=== PATIENT | male | born 1980 | race Caucasian/White ===

== ENCOUNTER 2017-01-14 18:01 | Inpatient (IN) | payer BC, OTHER ==
[~2017-01-14] VITALS: Ht 172.7 cm; Wt 63.5 kg
[2017-01-15] MEDS ORDERED: MAGNESIUM HYDROXIDE 30 ML LIQUID UDC PO PRN (11:30)
[2017-01-15] MEDS ORDERED: LOPERAMIDE HCL 2 MG CAPSULE PO PRN ×2 (11:30)
[2017-01-15] MEDS ORDERED: IBUPROFEN 600 MG TABLET PO PRN (11:30)
[2017-01-15] MEDS ORDERED: ONDANSETRON ODT 4 MG TAB.RAPDIS SL PRN (11:30)
[2017-01-15] MEDS ORDERED: MAG HYDROX/AL HYDROX/SIMETH 30 ML LIQUID UDC PO PRN (11:30)
[2017-01-15] MEDS ORDERED: BUPRENORPHINE HCL 2 MG TAB.SUBL SL PRN (11:30)
[2017-01-15] MEDS ORDERED: TRAZODONE 50 MG TABLET PO PRN ×2 (11:30→22:15)
[2017-01-15] MEDS ORDERED: DICYCLOMINE HCL 20 MG TABLET PO PRN (11:30)
[2017-01-15] MEDS ORDERED: PROMETHAZINE HCL 25 MG/1 ML VIAL IM PRN (11:30)
[2017-01-15] MEDS ORDERED: ACETAMINOPHEN 325 MG TABLET PO PRN (11:30)
[2017-01-15] MEDS ORDERED: MIRALAX 17 GM POWD.PACK PO PRN (11:30)
[2017-01-15] MEDS ORDERED: KETOROLAC TROMETHAMINE 30 MG INJ IM PRN (11:30)
[2017-01-15] MEDS: METHOCARBAMOL 750 MG TABLET PO PRN ×2 (11:59→21:58)
[2017-01-15 12:00] VITALS: BP 123/67
[2017-01-15] MEDS ORDERED: LORAZEPAM 1 MG TABLET PO ONE ×2 (12:00→14:45)
[2017-01-15] MEDS ORDERED: CLONIDINE HCL 0.1 MG TABLET PO ONE (12:00)
--- NOTE | 2017-01-15 12:00 | NUR ---
ADMISSION Pt 36 y/o male admitted for heroin and methamphetamine dependence. NKA. Full code status. Pt states he is homeless. cycle liaison made aware. Pt alert and oriented to name, place, and time. Perrla. Skin warm and dry to touch. Pt states he experience chills. Pt also states he feels anxious. Pt observed could not sit still during assessment. Pt easily irritable. Respirations even and unlabored. Bilateral hand tremors noted. Pt also states has stomach cramps. Pt observed with rushed, pressured speech. Pt was seen by Dr. Wright and placed on a 5 day subutex taper. Initial cows=16. Pt denies any seizure history. VS wnl. Pt oriented to room and the unit. Bed on lowest position with side rails x2 up for safety. Call light within reach. No distress noted at this time. substance history: -heroin IV 2gm daily x1.5 months, last used 01/14/17 0.5gm ( used for 20years) - Methamphetamine IV 2 gm daily x1.5gm , last used 01/14/17 0.5gm ( used for 20 years) -marijuana smoke. just dose occassionally per pt. Last used on 01/14/17 0.3gm ( used for 24 years) tx history: -[facility] 12/2016 -[facility] 11/2016 - [facility] 08/21/2016 Addendum: 01/16/17 at 1031 by ANNE DELACRUZ RN Pt states has no PCP. Addendum: 01/16/17 at 1032 by ANNE DELACRUZ RN Medical hx: Crohn's , hx of pancreatitis.
[2017-01-15 12:07] LABS: BASOPHILS # (AUTO) 0.1 K/uL (0.0-0.2); BASOPHILS % (AUTO) 0.5 % (0.0-2.0); EOSINOPHILS # (AUTO) 0.2 K/uL (0.0-0.7); EOSINOPHILS % (AUTO) 1.5 % (0.0-7.0); HEMATOCRIT 46.2 % (40.0-50.0); HEMOGLOBIN 15.4 g/dL (14.0-18.0); MEAN CORPUSCULAR HGB CONC 33 g/dL (32.0-37.0); MEAN CORPUSCULAR VOLUME 86.9 fL (82.0-92.0); MONOCYTES # (AUTO) 0.5 K/uL (0.1-1.30); MONOCYTES % (AUTO) 4.2 % (0.0-11.0); NEUTROPHILS # (AUTO) 8.1 K/uL (1.8-8.9); NEUTROPHILS % (AUTO) 75.8 % (38.5-71.5); PLATELET COUNT (AUTO) 386 K/uL (150-450); RED BLOOD CELL COUNT(AUTO) 5.32 MIL/uL (4.70-6.10); RED CELL DISTRIBUTION WIDTH 12.5 % (11.5-14.5); WHITE BLOOD COUNT (AUTO) 10.9 K/uL (4.0-11.2)
[2017-01-15 12:08] LABS: ALANINE AMINOTRANSFERASE 20 U/L (16-63); ALBUMIN 3.8 g/dL (3.4-5.0); ALKALINE PHOSPHATASE 106 U/L (50-136); ASPARTATE AMINOTRANSFERASE 16 U/L (15-37); BILIRUBIN,TOTAL 0.3 mg/dL (0.2-1.0); CALCIUM 9.2 mg/dL (8.5-10.1); CARBON DIOXIDE 30 mmol/L (21-32); CHLORIDE 103 mmol/L (98-107); GFR 86 mL/min (>60); GLUCOSE 150 mg/dL (74-106); MAGNESIUM 2.2 mg/dL (1.8-2.4); POTASSIUM 4.5 mmol/L (3.5-5.1); SODIUM SERUM 143 mmol/L (136-145); UREA NITROGEN, BLOOD 12 mg/dL (7-18)
[2017-01-15] MEDS: BUPRENORPHINE HCL 2 MG TAB.SUBL SL SCH ×3 (12:10→21:59)
[2017-01-15 12:19] LABS: THYROID STIMULATING HORMONE 1.379 mIU/mL (0.358-3.740)
[2017-01-15] MEDS ORDERED: GABA600T2 PO (12:55)
[2017-01-15] MEDS ORDERED: LAMO150T PO (12:55)
[2017-01-15] MEDS ORDERED: TRAZ-147 PO (12:55)
[2017-01-15] MEDS ORDERED: ARIP5TAB4 PO (12:55)
[2017-01-15 13:00] LABS: HIV-1 p24 ANTIGEN NON REACTIVE (NONREACTIVE); HIV-1/2 ANTIBODY NON REACTIVE (NONREACTIVE)
[2017-01-15] MEDS: GABAPENTIN 300 MG CAPSULE PO SCH ×2 (14:47→21:58)
--- NOTE | 2017-01-15 14:50 | NUR ---
PRN Pt with ciwa=8. Pt appears restless and easily irritable. Pt was seen by Dr. Wright with new order for ativan 2mg po x1 dose noted and carried out.
[2017-01-15 15:43] LABS: *AMPHETAMINE, URINE POSITIVE (NEGATIVE); *BARBITURATE, URINE POSITIVE (NEGATIVE); *CANNABINOID, URINE POSITIVE (NEGATIVE); *COCCAINE, URINE NEGATIVE (NEGATIVE); *OPIATE, URINE POSITIVE (NEGATIVE); *PHENCYCLIDINE SCREEN,URINE NEGATIVE (NEGATIVE)
[2017-01-15 15:45] LABS: ETHANOL < 3 MG/DL (0-0)
[2017-01-15 16:00] VITALS: BP 107/63
[2017-01-15] MEDS: CLONIDINE HCL 0.1 MG TABLET PO PRN (18:28)
[2017-01-15] MEDS: HYDROXYZINE PAMOATE 25 MG CAPSULE PO PRN (18:28)
--- NOTE | 2017-01-15 19:36 | NUR ---
END OF SHIFT Pt 36 y/o male admitted for heroin and methamphetamine dependence. Pt alert and oriented to name, place, and time. Perrla. Skin warm and dry to touch. Respirations even and unlabored. Pt states he experiences chills at times. Bilateral hand tremors. Pt observed clearing nostrils at times. Pt observed mostly in room today. Pt was seen by Dr. Wright and started on a 5 day subutex taper. Pt medication compliant and tolerated well. Bed on lowest position with side rails x2 up for safety. Call light within reach. No distress noted at this time.
[2017-01-15 20:00] VITALS: BP 121/87
--- NOTE | 2017-01-15 20:00 | NUR ---
START OF SHIFT NOTE: REPORT RECEIVED FROM DAY SHIFT NURSE. PT IS A 36YO MALE ADMITTED TODAY FOR OPIATE DEPENDENCE/WITHDRAWAL. PT REPORTS USING IV HEROIN 2GM/DAY FOR 6 WEEKS; PT ALSO REPORTS USING IV METHAMPHETAMINE AND MARIJUANA. LAST DAY SHIFT COWS=12. PT STARTED A 5-DAY SUBUTEX TAPER TODAY AT 12:00. PT REPORTS MED HX OF CROHN'S DISEASE AND PANCREATITIS. PT IS A FULL CODE, ON A REGULAR DIET, AND REPORTS NKA. PT IS CURRENTLY IN BED WITH EYES CLOSED, RESPIRATIONS ARE EVEN AND UNLABORED. NO S/S OF ACUTE DISTRESS NOTED. ALL SAFETY PRECAUTIONS ARE IN PLACE. WILL CONTINUE TO MONITOR.
--- NOTE | 2017-01-15 21:00 | NUR ---
UDS RESULTS: UDS RESULTED POSITIVE FOR BARBITURATES. PT REPORTS TAKING PHENOBARBITAL "ABOUT A WEEK AGO" AT ANOTHER DETOX FACILITY. PT UNSURE OF DOSE AND/OR FREQUENCY.
--- NOTE | 2017-01-15 22:01 | NUR ---
PRN ROBAXIN: PT C/O MYALGIA IN LOWER BACK. ADMINISTERED PRN ROBAXIN ORDERED. WILL CONTINUE TO MONITOR.
--- NOTE | 2017-01-15 22:15 | NUR ---
MD COMMUNICATION: PT REPORTS HOME MED TRAZODONE ORDER IS FOR 200MG QHS. DR TIWARI CONTACTED AND NEW ORDER RECEIVED FOR TRAZODONE 200MG PO QHS PRN.
[2017-01-15] MEDS ORDERED: TRAZODONE 100 MG TABLET ONE (22:27)
--- NOTE | 2017-01-15 22:28 | NUR ---
PRN TRAZODONE: PT C/O INABILITY TO SLEEP. ADMINISTERED PRN TRAZODONE ORDERED. WILL CONTINUE TO MONITOR.
--- NOTE | 2017-01-15 23:00 | NUR ---
REASSESSMENT: PT REPORTS THAT ROBAXIN WAS EFFECTIVE IN REDUCING MUSCLE CRAMPS IN LOWER BACK. PRN ROBAXIN EFFECTIVE. WILL CONTINUE TO MONITOR.
--- NOTE | 2017-01-15 23:30 | NUR ---
REASSESSMENT: PT IS IN BED WITH EYES CLOSED. RESPIRATIONS ARE EVEN AND UNLABORED. NO S/S OF ACUTE DISTRESS NOTED. PRN TRAZODONE 200MG EFFECTIVE. WILL CONTINUE TO MONITOR.
--- NOTE | 2017-01-16 | NUR ---
Vitals and COWS Refused: Pt refuses ordered 00:00 vitals and COWS assessments. Pt educated on risks and benefits. All safety precautions are in place. Will continue to monitor. Addendum: 01/16/17 at 0319 by ERICH PETE RN Amended: Links added.
--- NOTE | 2017-01-16 04:00 | NUR ---
VITALS & COWS REFUSED: PT REFUSES ORDERED 04:00 VITALS AND COWS ASSESSMENTS. PT EDUCATED ON RISKS AND BENEFITS BUT CONTINUED TO REFUSE. ALL SAFETY PRECAUTIONS ARE IN PLACE. WILL CONTINUE TO MONITOR. Addendum: 01/16/17 at 0715 by ERICH PETE RN Amended: Links added.
--- NOTE | 2017-01-16 07:28 | NUR ---
END OF SHIFT NOTE: PT IS A 36YO MALE ADMITTED TO [facility] ON 01/15/17 FOR OPIATE DEPENDENCE AND WITHDRAWAL. PT REPORTS USING IV HEROIN 2GM/DAY FOR 6 WEEKS; PT ALSO REPORTS USING IV METHAMPHETAMINE AND MARIJUANA. LAST COWS=10 AT 20:00. SCHEDULED SUBUTEX TAPER MANAGED S/S OF WITHDRAWAL, IN ADDITION TO PRN ROBAXIN FOR MYALGIA. NEW ORDER FOR TRAZODONE 200MG PO QHS PRN WAS RECEIVED AND ADMINISTERED THIS SHIFT FOR INSOMNIA. PT IS TO START DAY 2 OF A 5-DAY SUBUTEX TAPER. PT REPORTS MED HX OF CROHNS DISEASE AND PANCREATITIS. PT IS A FULL CODE, ON A REGULAR DIET, AND REPORTS NKA. TOTAL FLUID INTAKE THIS SHIFT: 1536 ML ORAL; OUTPUT: URINE X2, BM X2. VSS THIS SHIFT. PT IS CURRENTLY IN BED AND SLEPT FOR 9 HOURS THIS SHIFT. ALL SAFETY PRECAUTIONS ARE IN PLACE. ALL NEEDS ATTENDED AND MET. WILL ENDORSE TO DAY SHIFT NURSE.
[2017-01-16 08:00] VITALS: BP 116/62
--- NOTE | 2017-01-16 08:00 | NUR ---
START OF SHIFT Pt 36 y/o male admitted for heorin and methamphetamine dependence. Pt received in room awake watching television. Pt alert and oriented to name, place, and time. Perrla. Skin warm and slightly moist to touch. Respirations even and unlabored. Bilateral hand tremors noted. It was reported that pt slept for 9 hours last night. Bed on lowest position with side rails x2 up for safety. Call light within reach. No distress noted at this time.
--- NOTE | 2017-01-16 08:59 | NUR ---
PRN Pt with c/o body aches generalized 03/30. Robaxin po prn per MD order given and tolerated well.
[2017-01-16] MEDS ORDERED: TUBERCULIN,PURIF.PROT.DERIV. 5 TU/0.1 ML TEST ID ONE (09:00)
[2017-01-16] MEDS: BUPRENORPHINE HCL 2 MG TAB.SUBL SL SCH ×3 (09:58→22:01)
[2017-01-16] MEDS: HYDROXYZINE PAMOATE 25 MG CAPSULE PO PRN (09:58)
[2017-01-16] MEDS: GABAPENTIN 300 MG CAPSULE PO SCH ×3 (09:58→22:00)
--- NOTE | 2017-01-16 09:58 | NUR ---
PRN Pt stated feels anxious and restless. Vistaril po prn per MD order and catapres po prn per MD order given and tolerated well.
--- NOTE | 2017-01-16 09:58 | NUR ---
PRN Pt stated had diarrhea episode this morning. Immodium 4mg po prn per MD order given and tolerated well.
[2017-01-16] MEDS: CLONIDINE HCL 0.1 MG TABLET PO PRN (09:59)
[2017-01-16] MEDS: METHOCARBAMOL 750 MG TABLET PO PRN (09:59)
--- NOTE | 2017-01-16 09:59 | NUR ---
OANH BARBER Pt observed in room with eyes closed resting, but easily arousable to name. No distress noted at this time.
[2017-01-16] MEDS: MULTIVITAMINS,THERAPEUTIC TABLET PO SCH (10:08)
--- NOTE | 2017-01-16 10:58 | NUR ---
OANH BARBER Pt observed in room on bed with eyes closed resting, but easily arousable to name. No distress noted at this time.
[2017-01-16 12:00] VITALS: BP 96/41
[2017-01-16 12:30] VITALS: BP 108/60
[2017-01-16] MEDS ORDERED: LORAZEPAM 1 MG TABLET PO ONE (12:30)
[2017-01-16 15:09] LABS: HCV AB <0.1 s/co ratio (0.0-0.9); HEPATITIS B CORE AB, IgM Negative (Negative); HEPATITIS B SURFACE AG Negative (Negative)
[2017-01-16] MEDS: CLONIDINE HCL 0.1 MG TABLET PO SCH ×2 (15:26→22:00)
[2017-01-16 16:00] VITALS: BP 104/65
--- NOTE | 2017-01-16 18:45 | NUR ---
END OF SHIFT Pt 36 y/o male admitted for heroin and methamphetamine dependence. Pt alert and oriented to name, place, and time. Perrla. Skin warm and dry to touch. Respirations even and unlabored. Pt states he experiences chills at times throughout the day. Bilateral hand tremors. Pt observed mostly in room today. Pt did not attend group activity today. Pt was seen by Dr. Duncan today. Pt medication compliant and tolerated well. Bed on lowest position with side rails x2 up for safety. Call light within reach. No distress noted at this time.
--- NOTE | 2017-01-16 19:45 | NUR ---
Start of Shift Note: Report received from day shift nurse. Pt is a 36yo male admitted on 01/15/17 for opiate and methamphetamine dependence/withdrawal. Pt reports using 2gm IV heroin and methamphetamine daily for 6 weeks. Pt is on day 2 of a 5-day Subutex taper. Last day shift COWS=5. Pt is on a regular diet, reports NKDA/NKFA, and is a full code. Pt reports hx of Crohn's and pancreatitis. VSS during day shift, with PRN administration of Imodium, Vistaril, clonidine, Robaxin, and Ativan ONCE to manage s/s of withdrawal. Day shift nurse reports client agitated, anxious. Pt is currently with client resource specialist making phone call. Will continue to monitor.
[2017-01-16 20:00] VITALS: BP 115/69
[2017-01-16] MEDS: LAMOTRIGINE 100 MG TABLET PO SCH (21:59)
[2017-01-16] MEDS: ARIPIPRAZOLE 5 MG TABLET PO SCH (22:00)
[2017-01-16] MEDS: TRAZODONE 100 MG TABLET PO PRN (22:00)
--- NOTE | 2017-01-16 22:04 | NUR ---
PRN TRAZODONE: PT C/O INABILITY TO SLEEP. ADMINISTERED PRN TRAZODONE 200MG ORDERED. WILL CONTINUE TO MONITOR.
--- NOTE | 2017-01-16 23:00 | NUR ---
Reassessment: Upon reassessment, pt noted to be in bed with eyes closed. Respirations are even and unlabored. No s/s of acute distress noted. PRN Trazodone effective. Will continue to monitor.
--- NOTE | 2017-01-17 | NUR ---
VITALS AND COWS REFUSED: PT REFUSES 00:00 VITALS AND COWS ASSESSMENTS FOR SLEEP. PT EDUCATED ON RISKS AND BENEFITS. ALL SAFETY PRECAUTIONS ARE IN PLACE. WILL CONTINUE TO MONITOR. Addendum: 01/17/17 at 0503 by ERICH PETE RN Amended: Links added.
--- NOTE | 2017-01-17 04:00 | NUR ---
VITALS/COWS REFUSED: PT REFUSES 04:00 VITALS AND COWS ASSESSMENTS. PT EDUCATED ON RISKS AND BENEFITS. ALL SAFETY PRECAUTIONS ARE IN PLACE. WILL CONTINUE TO MONITOR. Addendum: 01/17/17 at 0503 by ERICH PETE RN Amended: Links added.
--- NOTE | 2017-01-17 07:45 | NUR ---
START OF SHIFT Pt is a 36 r old male, AA&Ox4. Pt was admitted on 01/15/17 for Opiate Dependence and is on 5 day Subutex taper as ordered. Medication veronica well. Pt is full code, Regular diet and NKA. Pt reports of PMH of Crohn disease, and Pancreatitis. Pt is observed with agitation and pacing back and forth in the hallway due to wanting to go for smoke break. Skin is intact, warm and dry to touch. No tremors seen or felt. Pt denies any n/v. encouraged increase fluid intake. Safety precautions observed. Call light is within reach. Will continue to monitor.
--- NOTE | 2017-01-17 07:46 | NUR ---
End of Shift Note: Pt is a 36yo male admitted to [facility] on 01/15/17 for medically-supervised withdrawal from opiates and methamphetamine. Pt reports using 2gm IV heroin and methamphetamine daily for 6 weeks. Pt is to start day 3 of a 5-day Subutex taper. Subutex taper effectively managed s/s of withdrawal. Last COWS=8 at 20:00. Pt is on a regular diet, reports NKDA/NKFA, and is a full code. Pt reports hx of Crohn's and pancreatitis. VSS during day shift, with PRN administration of Trazodone for insomnia. Total fluid intake this shift: 1091 ml; output: urine x1 and BM x0. Pt currently in bed and slept 8 hours this shift. Pt endorsed to day shift nurse.
[2017-01-17 08:00] VITALS: BP 112/62
[2017-01-17] MEDS: GABAPENTIN 300 MG CAPSULE PO SCH ×3 (08:52→22:08)
[2017-01-17] MEDS: CLONIDINE HCL 0.1 MG TABLET PO SCH ×3 (08:52→22:07)
[2017-01-17] MEDS: MULTIVITAMINS,THERAPEUTIC TABLET PO SCH (08:52)
[2017-01-17] MEDS ORDERED: BUPRENORPHINE HCL 2 MG TAB.SUBL SL SCH (09:00)
[2017-01-17 12:00] VITALS: BP 115/60
[2017-01-17] MEDS: BUPRENORPHINE HCL 2 MG TAB.SUBL SL SCH ×2 (14:22→22:07)
[2017-01-17 16:00] VITALS: BP 100/66
--- NOTE | 2017-01-17 18:52 | NUR ---
END OF SHIFT Pt is a 36 r old male, AA&Ox4. Pt was admitted on 01/15/17 for Opiate Dependence and is on 5 day Subutex taper as ordered. Medication veronica well. Pt is full code, Regular diet and NKA. Pt reports of PMH of Crohn disease, and Pancreatitis. Pt has been cooperative with plan of care and attended group sessions. Pt has also been cooperative with medication regime. No PRNs were given during the day. Last COWS score was 1 at 1600. Skin is intact, warm and dry to touch. No tremors seen or felt. Pt denies any n/v. Encouraged increase fluid intake. Safety precautions observed. Call light is within reach.
--- NOTE | 2017-01-17 19:45 | NUR ---
Start of Shift Note: Report received from day shift nurse. Pt is a 36yo male admitted on 01/15/17 for opiate and methamphetamine dependence and withdrawal. Pt reports using IV heroin 2gm/day and methamphetamine 2gm/day for 6 weeks. Pt is on day 3 of a 5-day Subutex taper. Last day shift COWS=1 and no PRN medications were necessary on day shift. Day shift nurse reports clients s/s of withdrawal improving. Pt is on a regular diet, reports NKDA/NKFA, and is a full code. Pt reports hx of Crohn's and pancreatitis. Pt is currently in bed with eyes closed. Respirations are even and unlabored. No s/s of acute distress noted. Will continue to monitor.
[2017-01-17 20:00] VITALS: BP 112/64
[2017-01-17] MEDS: LAMOTRIGINE 100 MG TABLET PO SCH (22:06)
[2017-01-17] MEDS: ARIPIPRAZOLE 5 MG TABLET PO SCH (22:08)
--- NOTE | 2017-01-17 22:29 | NUR ---
PRN Ph Addendum: 01/18/17 at 0446 by ERICH PETE RN PRN Phenergan: Pt c/o severe nausea. Administered PRN Phenergan at 22:29. Will continue to monitor.
--- NOTE | 2017-01-17 23:30 | NUR ---
Reassessment: Pt reports that he is no longer feeling nauseous. PRN Phenergan effective. Will continue to monitor.
--- NOTE | 2017-01-18 | NUR ---
VS/COWS Refused: Pt refuses V/S and COWS assessments, pt states that he wants to sleep. Pt educated on risks and benefits but continues to refuse. All safety precautions are in place. Will continue to monitor. Addendum: 01/18/17 at 0644 by ERICH PETE RN Amended: Links added.
[2017-01-18] MEDS ORDERED: TRAZODONE 100 MG TABLET ONE (00:38)
[2017-01-18] MEDS: TRAZODONE 100 MG TABLET PO PRN ×2 (00:45→21:26)
--- NOTE | 2017-01-18 00:45 | NUR ---
PRN Trazodone: Pt c/o inability to sleep. Administered PRN Trazodone 200mg as ordered. Will continue to monitor.
--- NOTE | 2017-01-18 01:45 | NUR ---
Reassessment: Pt is in bed with eyes closed. Respirations are even and unlabored. No s/s of acute distress noted. PRN Trazodone effective. Will continue to monitor.
--- NOTE | 2017-01-18 04:00 | NUR ---
VS and COWS Refused: Pt refuses V/S and COWS assessments for sleep. Pt educated on risks and benefits but continues to refuse. All safety precautions are in place. Will continue to monitor. Addendum: 01/18/17 at 0644 by ERICH PETE RN Amended: Links added.
--- NOTE | 2017-01-18 07:16 | NUR ---
End of Shift Note: Pt is a 36yo male admitted on 01/15/17 for medically supervised withdrawal from opiates and methamphetamine. Pt reports using IV heroin 2gm/day and methamphetamine 2gm/day for 6 weeks. Pt is to start day 4 of a 5-day Subutex taper. Last COWS=5 at 20:00 prior to scheduled Subutex taper dose. Subutex taper effectively managed s/s of withdrawal, in addition to PRN Phenergan for nausea. Pt verbalized improvement of withdrawal symptoms, and has denied pain throughout the day. Pt reports NKDA/NKFA and is a full code. Pt reports hx of Crohn's and pancreatitis. Pt is on a regular diet and tolerating well. Intake: 1400 ml; Output: urine 1x, BM 0x. Pt is currently in bed and slept 9 hours this shift. All needs attended and met. All safety precautions are in place. All information discussed and endorsed to day shift nurse.
--- NOTE | 2017-01-18 07:30 | NUR ---
Start of shift note; Received report from night nurse. Patient is a 36 y/o male admitted on 01/15/17 for Heroin/meth dependence. Patient reported past medical history of pancreatitis and Crohn's disease. Patient is on a full code status. Patient was placed on a 5 day Subutex taper started on 01/15/17. Patient received Trazodone/Phenergan last night noted to be effective. Patient's last COWS score is 5. Will continue to monitor patient.
[2017-01-18 08:00] VITALS: BP 130/84
[2017-01-18] MEDS: GABAPENTIN 300 MG CAPSULE PO SCH ×3 (09:03→21:23)
[2017-01-18] MEDS: MULTIVITAMINS,THERAPEUTIC TABLET PO SCH (09:03)
[2017-01-18] MEDS: CLONIDINE HCL 0.1 MG TABLET PO SCH ×3 (09:03→21:00)
[2017-01-18] MEDS: BUPRENORPHINE HCL 2 MG TAB.SUBL SL SCH ×3 (09:03→21:27)
[2017-01-18 12:00] VITALS: BP 98/63
[2017-01-18 16:00] VITALS: BP 105/61
--- NOTE | 2017-01-18 19:00 | NUR ---
End of shift note; Patient is AOX4. Patient is a 36 y/o male admitted on 01/15/17 for Heroin/meth dependence. Patient reported past medical history of pancreatitis and Crohn's disease. Patient is on a full code status. Patient was placed on a 5 day Subutex taper started on 01/15/17. Patient remained complaint with treatment plan. Medications were effective in reducing withdrawal symptoms. Met all needs.
--- NOTE | 2017-01-18 19:50 | NUR ---
Start of Shift Note: Report received from day shift nurse. Pt is a 36M, admitted for Heroin/Methamphetamine dependence. Pt was attending the group panel upon start of shift. Pt is AOx4 without s/s of acute distress. Pt is full code, regular diet, and on fall/seizure precautions. Pt noted with NKA. Pt reports medical hx of Crohns Disease and Pancreatitis. Pt is currently on a Subutex taper to manage withdrawal symptoms. Per day shift nurse, pts last COWS was 4. Bed in lowest position. Side rails up x2. Call light functioning and within reach. All needs attended and met. Will continue to monitor.
[2017-01-18 20:00] VITALS: BP 100/54
[2017-01-18] MEDS: ARIPIPRAZOLE 5 MG TABLET PO SCH (21:22)
[2017-01-18] MEDS: LAMOTRIGINE 100 MG TABLET PO SCH (21:25)
--- NOTE | 2017-01-19 | NUR ---
Vitals and COWS refused: Pt in bed with eyes closed. No acute distress noted. Respirations even and unlabored. RR 16. Attempted to take vitals but pt refused. Pt stated he would like to sleep for the rest of the morning. Will continue to monitor.
--- NOTE | 2017-01-19 04:00 | NUR ---
Vitals and COWS refused: Pt in bed with eyes closed. Pt refused vitals to be taken for the rest of the morning. Respirations even and unlabored. RR 16. Will continue to monitor.
--- NOTE | 2017-01-19 06:58 | NUR ---
End of Shift Note: Pt is 36M, admitted for Heroin/Methamphetamine dependence on 01/15/17. Pt is AOx4 without s/s of acute distress. Pt is full code, on regular diet, and on fall/seizure precautions. Pt noted with NKA. Pt reports medical hx of Crohns Disease and Pancreatitis. Pt slept for 7 hours. Respirations even and unlabored. Last COWS was 1 at 1999. Pt continues on Subutex taper. No PRN medications given during shift. No N/V noted during the shift. Fall and Sz precautions observed. Bed in lowest position. Side rails up x2. Call light functioning and within reach. All further needs attended and met. Will endorse to day shift nurse.
[2017-01-19 08:00] VITALS: BP 113/53
--- NOTE | 2017-01-19 08:38 | NUR ---
Start of shift note; Received report from night nurse. Patient is currently resting with eyes closed, respirations even and unlabored. Patient is a 36 y/o male admitted on 01/15/17 for Heroin/meth dependence. Patient reported past medical history of pancreatitis and Crohn's disease. Patient is on a full code status. Patient was placed on a 5 day Subutex taper started on 01/15/17. Patient slept for 7 hours . Patient's last COWS score is 1. Will continue to monitor patient.
[2017-01-19] MEDS ORDERED: BUPRENORPHINE HCL 2 MG TAB.SUBL SL SCH (09:00)
[2017-01-19] MEDS: GABAPENTIN 300 MG CAPSULE PO SCH ×3 (09:04→21:20)
[2017-01-19] MEDS: MULTIVITAMINS,THERAPEUTIC TABLET PO SCH (09:05)
[2017-01-19] MEDS: CLONIDINE HCL 0.1 MG TABLET PO SCH ×3 (09:05→21:21)
[2017-01-19] MEDS ORDERED: ONDANSETRON 4 MG/2 ML VIAL IM PRN (11:15)
[2017-01-19 12:00] VITALS: BP 94/68
[2017-01-19] MEDS: METHOCARBAMOL 750 MG TABLET PO PRN (14:55)
[2017-01-19] MEDS: HYDROXYZINE PAMOATE 25 MG CAPSULE PO PRN (14:55)
--- NOTE | 2017-01-19 14:55 | NUR ---
PRN medications; Patient is complaining of muscle aches and noted to be anxious, patient is pacing back and forth in the room. PRN Robaxin PO and PRN Vistaril 50mg PO given as per ordered. Will continue to monitor for effectiveness of medication.
[2017-01-19 16:00] VITALS: BP 102/62
--- NOTE | 2017-01-19 16:08 | NUR ---
Re-assessment; PRN medication is effective. Patient is calm and comfortable at this time, denies muscle aches at this time. Will continue to monitor patient.
--- NOTE | 2017-01-19 18:35 | NUR ---
End of shift note; Patient is AOX4. Patient is a 36 y/o male admitted on 01/15/17 for Heroin/meth dependence. Patient was started on a 5 day Subutex taper, no adverse reactions noted. Medications were effective in reducing withdrawal symptoms. Patient remained compliant with treatment plan. All safety measures secured. Met all needs.
--- NOTE | 2017-01-19 19:30 | NUR ---
START OF SHIFT NOTE : Pt is 36M, admitted for Heroin/Methamphetamine dependence on 01/15/17. Pt is AOx4 without s/s of acute distress. Pt is full code, on regular diet, and on fall/seizure precautions. Pt noted with NKA. Pt reports medical hx of Crohns Disease and Pancreatitis. Pt completed Subutex taper. Fall and Sz precautions observed. Pt. will be D/C tomorrow, he is advise to give urine sample for UDS. Safety measures in place : bed on lowest position with side rails x2 up for safety, call light within reach. Will continue to monitor closely and offer help.
[2017-01-19 20:00] VITALS: BP 120/68
[2017-01-19] MEDS: LAMOTRIGINE 100 MG TABLET PO SCH (21:19)
[2017-01-19 21:21] LABS: *AMPHETAMINE, URINE NEGATIVE (NEGATIVE); *BARBITURATE, URINE NEGATIVE (NEGATIVE); *CANNABINOID, URINE NEGATIVE (NEGATIVE); *COCCAINE, URINE NEGATIVE (NEGATIVE); *OPIATE, URINE NEGATIVE (NEGATIVE); *PHENCYCLIDINE SCREEN,URINE NEGATIVE (NEGATIVE)
[2017-01-19] MEDS: ARIPIPRAZOLE 5 MG TABLET PO SCH (21:22)
[2017-01-19] MEDS: TRAZODONE 100 MG TABLET PO PRN (21:44)
[2017-01-20] MEDS ORDERED: METH-33 PO (00:39)
[2017-01-20] MEDS ORDERED: CLON0.1T14 PO (00:39)
[2017-01-20] MEDS ORDERED: DICY20TA28 PO (00:39)
[2017-01-20] MEDS ORDERED: HYDR-3895 PO (00:39)
--- NOTE | 2017-01-20 06:58 | NUR ---
END OF SHIFT NOTE : Pt is 36M, admitted for Heroin/Methamphetamine dependence on 01/15/17. Pt is AOx4 without s/s of acute distress. Pt is full code, on regular diet, and on fall/seizure precautions. Pt noted with NKA. Pt reports medical hx of Crohns Disease and Pancreatitis. Pt completed Subutex taper. Fall and Sz precautions observed. Pt. will be D/C today (pending order), UDS sent to the lab. Pt remains compliant with the treatment plan. Pt denies nausea, vomiting and diarrhea. No PRNs were given during my shift. V/S remain WNL. RR=16, even and unlabored, lungs clear upon auscultation, abdomen soft and non- distended. Pt denies nausea, vomiting and diarrhea. LAST COWS= 1-2 at 0400 , INTAKE= 956 ml, voided x 2, slept 4 hours. Safety measures in place : bed on lowest position with side rails x2 up for safety, call light within reach. Will continue to monitor closely and offer help.
--- NOTE | 2017-01-20 07:59 | NUR ---
Start of shift note; Received report from night nurse. Patient is currently resting with eyes closed, respirations even and unlabored. Patient is a 36 y/o male admitted on 01/15/17 for Heroin/meth dependence. Patient reported past medical history of pancreatitis and Crohn's disease. Patient is on a full code status. Patient was placed on a 5 day Subutex taper started on 01/15/17. Patient slept for 6 hours . Patient's last COWS score is 1. Will continue to monitor patient.
[2017-01-20 08:00] VITALS: BP 94/55
[2017-01-20] MEDS: MULTIVITAMINS,THERAPEUTIC TABLET PO SCH (08:56)
[2017-01-20] MEDS: GABAPENTIN 300 MG CAPSULE PO SCH ×2 (08:56→14:09)
[2017-01-20] MEDS: CLONIDINE HCL 0.1 MG TABLET PO SCH ×2 (08:56→14:09)
[2017-01-20 12:00] VITALS: BP 112/59
[2017-01-20 14:09] VITALS: BP 120/88
--- NOTE | 2017-01-20 15:00 | NUR ---
Discharge note; Patient is AOX4. All valuables, belongings, prescriptions and belongings given to patient. Patient completed treatment without any adverse reactions. Patient left the hospital at exactly 1500 on 01/20/17. Patient left in a stable condition. Met all needs.
== END 2017-01-20 15:00 | DRG 895 ==
LOC: SRC 01-15 10:39
PROVIDERS: ADMIT Internal Medicine; ATTEND Internal Medicine
PROC: HZ2ZZZZ Detoxification Services for Substance Abuse Treatment (ICD-10-PCS; principal; 2017-01-15)
PROC: HZ31ZZZ Individual Counseling for Substance Abuse Treatment, Behavioral (ICD-10-PCS; 2017-01-18)
DX: F11.23 Opioid dependence with withdrawal (principal); K50.90 Crohn's disease, unspecified, without complications; F15.20 Other stimulant dependence, uncomplicated; Z59.0 Homelessness; Z90.49 Acquired absence of other specified parts of digestive tract; F17.210 Nicotine dependence, cigarettes, uncomplicated; F41.9 Anxiety disorder, unspecified; F31.9 Bipolar disorder, unspecified; F12.90 Cannabis use, unspecified, uncomplicated; Z81.8 Family history of other mental and behavioral disorders; Z81.1 Family history of alcohol abuse and dependence; Z81.3 Family history of other psychoactive substance abuse and dependence
CPT/HCPCS: 36415; 80307; 80345; 80349; 80361; 83735; 84443; 85025; 86592; 86705; 86803; 87340; 87806; A4663; G6040-TC; J2550

== ENCOUNTER 2017-05-20 12:18 | Inpatient (IN) | payer BC, OTHER ==
[~2017-05-20] VITALS: Ht 175.3 cm; Wt 74.8 kg
[~2017-05-20 12:18] MED LIST: ARIP5TAB10 PO; CLON0.1T14 PO; DICY20TA28 PO; GABA600T2 PO; HYDR-3895 PO; LAMO150T PO; METH-33 PO; TRAZ-147 PO
[2017-05-20] MEDS ORDERED: LOPERAMIDE HCL 2 MG CAPSULE PO PRN ×2 (17:45)
[2017-05-20] MEDS ORDERED: IBUPROFEN 600 MG TABLET PO PRN (17:45)
[2017-05-20] MEDS ORDERED: BUPRENORPHINE HCL 2 MG TAB.SUBL SL PRN (17:45)
[2017-05-20] MEDS ORDERED: ONDANSETRON ODT 4 MG TAB.RAPDIS SL PRN (17:45)
[2017-05-20] MEDS ORDERED: ACETAMINOPHEN 325 MG TABLET PO PRN (17:45)
[2017-05-20] MEDS ORDERED: LORAZEPAM 2 MG/1 ML VIAL IM PRN (17:45)
[2017-05-20] MEDS ORDERED: LORAZEPAM 1 MG TABLET PO PRN (17:45)
[2017-05-20] MEDS ORDERED: CLONIDINE HCL 0.1 MG TABLET PO PRN (17:45)
[2017-05-20] MEDS ORDERED: diphenhydrAMINE 50 MG CAPSULE PO PRN (17:45)
[2017-05-20] MEDS ORDERED: MIRALAX 17 GM POWD.PACK PO PRN (17:45)
[2017-05-20] MEDS ORDERED: HYDROXYZINE PAMOATE 25 MG CAPSULE PO PRN (17:45)
[2017-05-20] MEDS ORDERED: DICYCLOMINE HCL 20 MG TABLET PO PRN (17:45)
[2017-05-20] MEDS ORDERED: ONDANSETRON 4 MG/2 ML VIAL IM PRN (17:45)
[2017-05-20] MEDS ORDERED: METHOCARBAMOL 750 MG TABLET PO PRN (17:45)
[2017-05-20] MEDS ORDERED: MAG HYDROX/AL HYDROX/SIMETH 30 ML LIQUID UDC PO PRN (17:45)
[2017-05-20] MEDS ORDERED: MAGNESIUM HYDROXIDE 30 ML LIQUID UDC PO PRN (17:45)
[2017-05-20 19:32] LABS: BASOPHILS # (AUTO) 0.1 K/uL (0.0-8.0); BASOPHILS % (AUTO) 0.6 % (0.0-2.0); EOSINOPHILS # (AUTO) 0.4 K/uL (0.0-0.7); EOSINOPHILS % (AUTO) 3.8 % (0.0-7.0); HEMATOCRIT 36.5 % (40-50); HEMOGLOBIN 12.3 G/DL (14.0-18.0); LYMPHOCYTES # (AUTO) 2.6 K/UL (0.8-4.8); MEAN CORPUSCULAR HGB CONC 34 g/dL (32.0-37.0); MEAN CORPUSCULAR VOLUME 85.8 FL (82.0-92.0); MONOCYTES # (AUTO) 0.7 K/UL (0.1-1.30); MONOCYTES % (AUTO) 7.4 % (0.0-11.0); NEUTROPHILS # (AUTO) 5.6 K/UL (1.8-8.9); NEUTROPHILS % (AUTO) 60.2 % (38.5-71.5); PLATELET COUNT (AUTO) 304 K/UL (150-450); RED BLOOD CELL COUNT(AUTO) 4.25 MIL/UL (4.7-6.1); WHITE BLOOD COUNT (AUTO) 9.4 K/UL (4.0-11.2)
[2017-05-20 19:53] LABS: ALANINE AMINOTRANSFERASE 28 U/L (16-63); ALKALINE PHOSPHATASE 110 U/L (50-136); ASPARTATE AMINOTRANSFERASE 19 U/L (15-37); BILIRUBIN,TOTAL 0.5 mg/dL (0.2-1.0); CARBON DIOXIDE 27 mmol/L (21-32); CHLORIDE 104 mmol/L (98-107); CREATININE 0.9 mg/dL (0.6-1.3); GLUCOSE 123 mg/dL (74-106); POTASSIUM 3.9 mmol/L (3.5-5.1); TOTAL PROTEIN, SERUM 7.1 g/dL (6.4-8.2); UREA NITROGEN, BLOOD 17 mg/dL (7-18)
[2017-05-20 20:00] VITALS: BP 114/68
[2017-05-20 20:05] LABS: ETHANOL < 3 MG/DL (0-0)
[2017-05-20 20:22] LABS: *AMPHETAMINE, URINE POSITIVE (NEGATIVE); *BARBITURATE, URINE NEGATIVE (NEGATIVE); *CANNABINOID, URINE NEGATIVE (NEGATIVE); *COCCAINE, URINE NEGATIVE (NEGATIVE); *OPIATE, URINE POSITIVE (NEGATIVE); *PHENCYCLIDINE SCREEN,URINE NEGATIVE (NEGATIVE)
[2017-05-20] MEDS ORDERED: LORAZEPAM 1 MG TABLET PO ONE (21:00)
[2017-05-20] MEDS: SULFAMETH/TRIMETH 800/160 MG TABLET PO SCH (21:08)
[2017-05-20] MEDS: LACTOBACILLUS RHAMNOSUS GG 1 EACH CAPSULE PO SCH (21:08)
[2017-05-21] VITALS: BP 125/75
[2017-05-21] MEDS ORDERED: TRAZODONE 50 MG TABLET PO SCH
[2017-05-21] MEDS ORDERED: TRAZODONE 50 MG TABLET ONE (00:14)
[2017-05-21] MEDS: LORAZEPAM 1 MG TABLET PO PRN ×2 (00:26→04:14)
[2017-05-21 04:00] VITALS: BP 141/81
[2017-05-21 08:39] VITALS: BP 127/81
[2017-05-21] MEDS: MULTIVITAMINS,THERAPEUTIC TABLET PO SCH (08:51)
[2017-05-21] MEDS: LACTOBACILLUS RHAMNOSUS GG 1 EACH CAPSULE PO SCH ×2 (08:51→21:00)
[2017-05-21] MEDS: SULFAMETH/TRIMETH 800/160 MG TABLET PO SCH ×2 (08:51→21:00)
[2017-05-21] MEDS: GABAPENTIN 300 MG CAPSULE PO SCH ×3 (08:51→21:00)
[2017-05-21] MEDS: BUPRENORPHINE HCL 2 MG TAB.SUBL SL SCH ×4 (08:52→21:00)
[2017-05-21] MEDS ORDERED: TUBERCULIN,PURIF.PROT.DERIV. 5 TU/0.1 ML TEST ID ONE (09:00)
[2017-05-21] MEDS: NEOMY/BACITRAC/POLYMI OINT 28.35 GM TUBE TOP SCH ×2 (09:43→17:00)
[2017-05-21] MEDS: LAMOTRIGINE 100 MG TABLET PO SCH (10:45)
[2017-05-21] MEDS ORDERED: OLANZAPINE 10 MG VIAL IM ONE ×2 (11:45→15:15)
[2017-05-21 12:26] VITALS: BP 130/80
[2017-05-21] MEDS ORDERED: LORAZEPAM 2 MG/1 ML VIAL IM ONE ×4 (13:00→18:00)
[2017-05-21] MEDS ORDERED: HALOPERIDOL LACTATE 5 MG/1 ML VIAL IM STA (14:18)
[2017-05-21] MEDS ORDERED: diphenhydrAMINE 50 MG/1 ML VIAL IM STA (14:18)
[2017-05-21] MEDS ORDERED: diphenhydrAMINE 50 MG/1 ML VIAL IM ONE ×2 (15:00→19:00)
[2017-05-21] MEDS: VALPROIC ACID 250 MG CAPSULE PO SCH ×2 (15:00→17:00)
[2017-05-21] MEDS ORDERED: HALOPERIDOL LACTATE 5 MG/1 ML VIAL IM ONE ×2 (15:00→19:00)
[2017-05-21 20:11] VITALS: BP 123/89
[2017-05-21] MEDS: ARIPIPRAZOLE 5 MG TABLET PO SCH (21:00)
[2017-05-21] MEDS: TRAZODONE 100 MG TABLET PO SCH (21:00)
[2017-05-22 00:12] VITALS: BP 117/68
[2017-05-22 04:42] VITALS: BP 104/67
[2017-05-22 08:00] VITALS: BP 102/68
[2017-05-22] MEDS ORDERED: BUPRENORPHINE HCL 2 MG TAB.SUBL SL SCH (09:00)
[2017-05-22] MEDS: LAMOTRIGINE 100 MG TABLET PO SCH (09:14)
[2017-05-22] MEDS: MULTIVITAMINS,THERAPEUTIC TABLET PO SCH (09:15)
[2017-05-22] MEDS: NEOMY/BACITRAC/POLYMI OINT 28.35 GM TUBE TOP SCH ×2 (09:15→17:00)
[2017-05-22] MEDS: VALPROIC ACID 250 MG CAPSULE PO SCH ×3 (09:15→17:00)
[2017-05-22] MEDS: LACTOBACILLUS RHAMNOSUS GG 1 EACH CAPSULE PO SCH ×2 (09:15→23:22)
[2017-05-22] MEDS: SULFAMETH/TRIMETH 800/160 MG TABLET PO SCH ×2 (09:15→23:22)
[2017-05-22] MEDS: GABAPENTIN 300 MG CAPSULE PO SCH ×3 (09:15→23:23)
[2017-05-22 12:00] VITALS: BP 115/60
[2017-05-22 13:10] LABS: HEPATITIS B SURFACE AG Negative (Negative)
[2017-05-22] MEDS: BUPRENORPHINE HCL 2 MG TAB.SUBL SL SCH ×2 (14:58→23:23)
[2017-05-22 16:00] VITALS: BP 110/76
[2017-05-22 20:10] VITALS: BP 106/57
[2017-05-22] MEDS: ARIPIPRAZOLE 5 MG TABLET PO SCH (23:23)
[2017-05-22] MEDS: TRAZODONE 100 MG TABLET PO SCH (23:23)
[2017-05-22] MEDS ORDERED: BUPRENORPHINE HCL 2 MG TAB.SUBL SL ONE (23:32)
[2017-05-23 00:12] VITALS: BP 108/63
[2017-05-23 04:41] VITALS: BP 110/65
[2017-05-23 08:00] VITALS: BP 113/68
[2017-05-23] MEDS ORDERED: BUPRENORPHINE HCL 2 MG TAB.SUBL SL SCH ×2 (09:00→09:15)
[2017-05-23] MEDS ORDERED: LORAZEPAM 1 MG TABLET PO ONE (09:15)
[2017-05-23] MEDS: MULTIVITAMINS,THERAPEUTIC TABLET PO SCH (09:22)
[2017-05-23] MEDS: SULFAMETH/TRIMETH 800/160 MG TABLET PO SCH ×2 (09:22→20:51)
[2017-05-23] MEDS: GABAPENTIN 300 MG CAPSULE PO SCH ×3 (09:22→20:51)
[2017-05-23] MEDS: LACTOBACILLUS RHAMNOSUS GG 1 EACH CAPSULE PO SCH ×2 (09:22→20:51)
[2017-05-23] MEDS: LAMOTRIGINE 100 MG TABLET PO SCH (09:22)
[2017-05-23] MEDS: VALPROIC ACID 250 MG CAPSULE PO SCH ×3 (09:23→16:20)
[2017-05-23] MEDS: NEOMY/BACITRAC/POLYMI OINT 28.35 GM TUBE TOP SCH ×2 (09:23→16:20)
[2017-05-23] MEDS ORDERED: GABA-534 PO (11:07)
[2017-05-23] MEDS ORDERED: HYDR-3895 PO (11:07)
[2017-05-23] MEDS ORDERED: DICY20TA28 PO (11:07)
[2017-05-23] MEDS ORDERED: METH-406 PO (11:07)
[2017-05-23] MEDS ORDERED: VALP250C3 PO (11:07)
[2017-05-23] MEDS ORDERED: IBUP-1955 PO (11:07)
[2017-05-23 12:00] VITALS: BP 114/70
[2017-05-23 15:28] LABS: *AMPHETAMINE, URINE POSITIVE (NEGATIVE); *BARBITURATE, URINE NEGATIVE (NEGATIVE); *CANNABINOID, URINE NEGATIVE (NEGATIVE); *COCCAINE, URINE NEGATIVE (NEGATIVE); *OPIATE, URINE POSITIVE (NEGATIVE); *PHENCYCLIDINE SCREEN,URINE NEGATIVE (NEGATIVE)
[2017-05-23 16:00] VITALS: BP 118/77
[2017-05-23 20:04] VITALS: BP 135/68
[2017-05-23] MEDS: ARIPIPRAZOLE 5 MG TABLET PO SCH (20:51)
[2017-05-23] MEDS: TRAZODONE 100 MG TABLET PO SCH (20:51)
[2017-05-24 00:11] VITALS: BP 124/73
[2017-05-24 04:26] VITALS: BP 118/71
[2017-05-24 08:06] VITALS: BP 98/57
[2017-05-24] MEDS: VALPROIC ACID 250 MG CAPSULE PO SCH (08:16)
[2017-05-24] MEDS: LACTOBACILLUS RHAMNOSUS GG 1 EACH CAPSULE PO SCH (08:16)
[2017-05-24] MEDS: SULFAMETH/TRIMETH 800/160 MG TABLET PO SCH (08:16)
[2017-05-24] MEDS: MULTIVITAMINS,THERAPEUTIC TABLET PO SCH (08:17)
[2017-05-24] MEDS: GABAPENTIN 300 MG CAPSULE PO SCH (08:17)
[2017-05-24] MEDS: LAMOTRIGINE 100 MG TABLET PO SCH (08:17)
[2017-05-24] MEDS: NEOMY/BACITRAC/POLYMI OINT 28.35 GM TUBE TOP SCH (08:19)
[2017-05-24] MEDS ORDERED: BUPRENORPHINE HCL 2 MG TAB.SUBL SL SCH (09:00)
== END 2017-05-24 08:57 | disposition home or self-care (01) | DRG 895 ==
LOC: SRC 17:20
PROVIDERS: ADMIT Internal Medicine; ATTEND Internal Medicine
PROC: HZ2ZZZZ Detoxification Services for Substance Abuse Treatment (ICD-10-PCS; principal; 2017-05-20)
PROC: HZ31ZZZ Individual Counseling for Substance Abuse Treatment, Behavioral (ICD-10-PCS; 2017-05-23)
DX: F11.23 Opioid dependence with withdrawal (principal); K50.90 Crohn's disease, unspecified, without complications; F31.60 Bipolar disorder, current episode mixed, unspecified; L03.114 Cellulitis of left upper limb; F15.259 Other stimulant dependence with stimulant-induced psychotic disorder, unspecified; L02.414 Cutaneous abscess of left upper limb; F15.221 Other stimulant dependence with intoxication delirium; Z90.49 Acquired absence of other specified parts of digestive tract; G47.00 Insomnia, unspecified; Z81.1 Family history of alcohol abuse and dependence; Z81.3 Family history of other psychoactive substance abuse and dependence; Z81.8 Family history of other mental and behavioral disorders; F41.9 Anxiety disorder, unspecified; D64.9 Anemia, unspecified; I15.9 Secondary hypertension, unspecified; F15.23 Other stimulant dependence with withdrawal; F16.10 Hallucinogen abuse, uncomplicated; F12.90 Cannabis use, unspecified, uncomplicated; Z59.0 Homelessness
CPT/HCPCS: 36415; 80307; 80324; 80361; 83735; 85025; 86592; 86705; 86803; 87340; 87806; G0480; J1200; J1630; J2060; J2358; Q0163

== ENCOUNTER 2017-11-10 23:51 | Emergency (ER) | payer BC, OTHER ==
[~2017-11-10] VITALS: Ht 175.3 cm; Wt 74.8 kg
[~2017-11-10 23:51] MED LIST changes: -CLON0.1T14 PO; +GABA-534 PO; -GABA600T2 PO; +IBUP-1955 PO; -METH-33 PO; +METH-406 PO; +VALP250C3 PO
--- NOTE | 2017-11-11 00:25 | NUR ---
MOSHE TRAN at bedside for MSE
[2017-11-11] MEDS ORDERED: IV NORMAL SALINE 1000 ML BAG IV ONE (00:30)
[2017-11-11] MEDS ORDERED: KETOROLAC TROMETHAMINE 30 MG INJ IVP ONE (00:30)
[2017-11-11] MEDS ORDERED: VANCOMYCIN IV 1,000 MG in IV DEXTROSE 5% 250 ML IV ONE (00:30)
[2017-11-11] MEDS ORDERED: VANCOMYCIN IV 200 ML ONE (00:55)
[2017-11-11] MEDS ORDERED: KETOROLAC TROMETHAMINE 30 MG INJ ONE (00:55)
--- NOTE | 2017-11-11 01:00 | NUR ---
pt aao x4. able to speak in complete sentences and verbalize needs. here with c/o LLE pain from self injecting. no acute distress noted. pt respirations even and unlabored. no cardiovascular distress noted.
--- NOTE | 2017-11-11 01:20 | NUR ---
3 unsuccessfull attempts in starting peripheral line. ER MD notified.
--- NOTE | 2017-11-11 03:03 | NUR ---
Patient discharged to home in stable conditon. Ambulated out of ER with steady and stable gait Written and verbal after care instructions given with rx. Patient verbalizes understanding of instructions. IV removed.
[2017-11-11 03:09] VITALS: BP 118/65
== END 2017-11-11 03:05 | disposition home or self-care (01) ==
LOC: ER 23:52
DX: L03.116 Cellulitis of left lower limb (principal); F11.10 Opioid abuse, uncomplicated
CPT/HCPCS: 96365; 96375; 99284; A4663 ×2; J1885; J3370; J7030

== ENCOUNTER 2018-02-25 02:11 | Emergency (ER) | payer BC ==
[~2018-02-25] VITALS: Ht 175.3 cm; Wt 79.4 kg
--- NOTE | 2018-02-25 02:39 | NUR ---
DR NICHOLSON INTO EVAL PATIENT
[2018-02-25] MEDS ORDERED: LIDOCAINE HCL 2% 20 ML VIAL TP ONE (02:45)
[2018-02-25] MEDS ORDERED: LET TOPICAL SOLUTION 8 ML UDC TOP ONE (02:45)
[2018-02-25] MEDS ORDERED: SODIUM BICARBONATE 4.2 % (NEUT) 5 ML VIAL TP ONE (02:45)
[2018-02-25] MEDS ORDERED: LET TOPICAL SOLUTION 8 ML UDC ONE (02:49)
[2018-02-25] MEDS ORDERED: SODIUM BICARBONATE 4.2 % (NEUT) 5 ML VIAL ONE (02:49)
[2018-02-25] MEDS ORDERED: LIDOCAINE HCL 2% 20 ML VIAL ONE (02:50)
--- NOTE | 2018-02-25 03:45 | NUR ---
Patient discharged to home in stable conditon. Written and verbal after care instructions given. Patient verbalizes understanding of instructions. Wound care provided- wound dressed per MD. Pt took all personal belongings. No distress noted. Accompanied by significant other.
[2018-02-25 04:25] VITALS: BP 120/86
== END 2018-02-25 03:50 | disposition home or self-care (01) ==
LOC: ER 02:14
DX: L02.414 Cutaneous abscess of left upper limb (principal); F11.10 Opioid abuse, uncomplicated; F15.10 Other stimulant abuse, uncomplicated; Z79.1 Long term (current) use of non-steroidal anti-inflammatories (NSAID); Z79.891 Long term (current) use of opiate analgesic; Z79.899 Other long term (current) drug therapy
CPT/HCPCS: A4663; J3490

== ENCOUNTER 2019-04-15 23:39 | Emergency (ER) | payer SELFPAY ==
[~2019-04-15] VITALS: Ht 175.3 cm; Wt 79.4 kg
[~2019-04-15 23:39] MED LIST changes: -TRAZ-147 PO; +TRAZ-214 PO
--- NOTE | 2019-04-16 01:01 | NUR ---
DRESSING PLACED ON I/D SITE
[2019-04-16 01:04] VITALS: BP 132/80
--- NOTE | 2019-04-16 01:04 | NUR ---
Patient discharged to home in stable conditon. Written and verbal after care instructions given. Patient verbalizes understanding of instructions. WALKED OUT OF ER WITH NO DISTRESS NOTED
== END 2019-04-16 01:05 | disposition home or self-care (01) ==
LOC: ER 23:42
DX: L02.211 Cutaneous abscess of abdominal wall (principal); F11.10 Opioid abuse, uncomplicated; F15.10 Other stimulant abuse, uncomplicated; Z79.1 Long term (current) use of non-steroidal anti-inflammatories (NSAID); Z79.899 Other long term (current) drug therapy; Z79.2 Long term (current) use of antibiotics
CPT/HCPCS: A4663

== ENCOUNTER 2019-04-18 21:10 | Emergency (ER) | payer SELFPAY ==
[~2019-04-18] VITALS: Ht 175.3 cm; Wt 79.4 kg
--- NOTE | 2019-04-18 21:43 | NUR ---
ERMD at bedside for MSE
--- NOTE | 2019-04-18 21:50 | NUR ---
Patient ambulated with stable gait. Here for wound check on previous abscess site on LLQ. Respiratory even and unlabored, no cough no sob. No cardiovascular distress noted. No GI/ distress
[2019-04-18] MEDS ORDERED: LET TOPICAL SOLUTION 8 ML UDC TP ONE (22:00)
[2019-04-18] MEDS ORDERED: LIDOCAINE HCL 2% 20 ML VIAL IJ ONE (22:00)
[2019-04-18] MEDS ORDERED: LET TOPICAL SOLUTION 8 ML UDC ONE (22:00)
[2019-04-18] MEDS ORDERED: LIDOCAINE HCL 2% 20 ML VIAL ONE (22:00)
[2019-04-18] MEDS ORDERED: SODIUM BICARBONATE 4.2 % (NEUT) 5 ML VIAL TP ONE (22:00)
[2019-04-18] MEDS ORDERED: NEOMY/BACITRA/POLYMYXIN B OINT UD PACKET TP ONE ×2 (23:00→23:03)
--- NOTE | 2019-04-18 23:01 | NUR ---
Patient is ambulatory with steady gait. Refuses offer of [facility] placement. Patient given list of available shelters in surrounding area.Patient discharged to home in stable conditon. Written and verbal after care instructions given. Patient verbalizes understanding of instructions.
== END 2019-04-18 23:08 | disposition home or self-care (01) ==
LOC: ER 21:10
DX: L02.211 Cutaneous abscess of abdominal wall (principal); F11.10 Opioid abuse, uncomplicated; F15.10 Other stimulant abuse, uncomplicated; Z79.1 Long term (current) use of non-steroidal anti-inflammatories (NSAID); Z79.2 Long term (current) use of antibiotics; Z79.899 Other long term (current) drug therapy
CPT/HCPCS: 10060; 99283; J3490 ×2; A4663

== ENCOUNTER 2019-07-07 01:45 | Emergency (ER) | payer SELFPAY ==
--- NOTE | 2019-07-07 02:04 | NUR ---
PATIENT LEFT WITHOUT BEING TRAIGE OR SEEN BY ERMD.
== END 2019-07-07 02:07 | disposition left against medical advice (07) ==
LOC: ER 01:49
DX: Z53.21 Procedure and treatment not carried out due to patient leaving prior to being seen by health care provider (principal)

== ENCOUNTER 2021-03-08 05:21 | Emergency (ER) | payer SELFPAY ==
[~2021-03-08] VITALS: Ht 175.3 cm; Wt 79.4 kg
[2021-03-08] MEDS ORDERED: PIPERACILLIN SODIUM/TAZOBACTAM 3.375 G in IV DEXTROSE 5% 50 ML IV ONE (06:00)
[2021-03-08] MEDS ORDERED: VANCOMYCIN IV 1,000 MG in IV DEXTROSE 5% 250 ML IV ONE (06:00)
--- NOTE | 2021-03-08 06:20 | NUR ---
lab at bedside
[2021-03-08] MEDS ORDERED: VANCOMYCIN IV 200 ML ONE (06:22)
[2021-03-08] MEDS ORDERED: PIPERACILLIN/TAZOBACTAM/D5W 50 ML IV ONE (06:23)
[2021-03-08 06:31] LABS: BASOPHILS % (AUTO) 0.4 % (0.0-2.0); EOSINOPHILS # (AUTO) 0.3 K/uL (0.0-0.7); EOSINOPHILS % (AUTO) 2.9 % (0.0-7.0); HEMATOCRIT 35.6 % (36.7-47.1); LYMPHOCYTES # (AUTO) 2.1 K/uL (20.0-40.0); LYMPHOCYTES % (AUTO) 23.2 % (20.5-51.5); MEAN CORPUSCULAR HEMOGLOBIN 28.4 uug (23.8-33.4); MEAN CORPUSCULAR HGB CONC 34 g/dL (32.5-36.3); MEAN CORPUSCULAR VOLUME 84.1 fL (73.0-96.2); MONOCYTES # (AUTO) 0.8 K/uL (2.0-10.0); MONOCYTES % (AUTO) 8.4 % (0.0-11.0); NEUTROPHILS % (AUTO) 65.1 % (38.5-71.5); PLATELET COUNT (AUTO) 249 K/uL (152-348); RED BLOOD CELL COUNT(AUTO) 4.23 MIL/uL (4.06-5.63); WHITE BLOOD COUNT (AUTO) 9.2 K/uL (3.6-10.2)
[2021-03-08 06:40] LABS: CREATININE 0.9 mg/dL (0.6-1.3); POTASSIUM 2.9 mmol/L (3.5-5.1)
[2021-03-08 06:46] LABS: BILIRUBIN,DIRECT 0.1 mg/dL (0.0-0.2); BILIRUBIN,TOTAL 0.2 mg/dL (0.2-1.0); TOTAL PROTEIN, SERUM 7.2 g/dL (6.4-8.2)
[2021-03-08] MEDS ORDERED: POTASSIUM CHLORIDE 20 MEQ TAB.PRT.SR PO ONE (07:15)
[2021-03-08] MEDS ORDERED: POTASSIUM CHLORIDE 20 MEQ TAB.PRT.SR ONE (07:57)
[2021-03-08] MEDS ORDERED: SULF1TAB48 PO (08:43)
--- NOTE | 2021-03-08 08:46 | NUR ---
Pt requesting to come back to ER in a couple of days. MD made aware and agrees. Pt in no acute distress. Continue plan of care.
--- NOTE | 2021-03-08 08:49 | NUR ---
Patient discharged to home in stable condition. Written and verbal after care instructions given. Patient verbalizes understanding of instructions. Stressed follow up or return to ER for worsening s/s. Pt ambulated out of ER with stable gait. All belongings with pt.
[2021-03-08 08:50] VITALS: BP 133/77
== END 2021-03-08 08:52 | disposition home or self-care (01) ==
LOC: ER 05:29
DX: L03.115 Cellulitis of right lower limb (principal); E87.6 Hypokalemia; D64.9 Anemia, unspecified; L97.919 Non-pressure chronic ulcer of unspecified part of right lower leg with unspecified severity; R60.0 Localized edema; R00.0 Tachycardia, unspecified; K50.90 Crohn's disease, unspecified, without complications; F15.10 Other stimulant abuse, uncomplicated; F11.10 Opioid abuse, uncomplicated; Z90.49 Acquired absence of other specified parts of digestive tract; Z20.822 Contact with and (suspected) exposure to COVID-19
CPT/HCPCS: 36415; 83605; 85025; 85651; 85730; 87040; 87070; 87077; 93005; A4663; J2543; J3370

== ENCOUNTER 2021-08-01 01:44 | Emergency (ER) | payer BC, OTHER ==
[~2021-08-01] VITALS: Ht 175.3 cm; Wt 83.9 kg
[~2021-08-01 01:44] MED LIST changes: -ARIP5TAB10 PO; -DICY20TA28 PO; -GABA-534 PO; -HYDR-3895 PO; -IBUP-1955 PO; -LAMO150T PO; -METH-406 PO; +SULF1TAB48 PO; -TRAZ-214 PO; -VALP250C3 PO
--- NOTE | 2021-08-01 02:04 | NUR ---
Pt brought straight back to room ED2A by skate boarder David. Pt placed in gown and undressed pants so EDMD can assess pts cc of bilat LE pain s/p testosterone injection. Pt states he is a former IV drug user and has had I&Ds in the past. Bilat LE around ankles are grossly swollen with 2+ pitting edema. Pt AAOx4, VSS, PE WNL.
--- NOTE | 2021-08-01 02:13 | NUR ---
EDMD at bedside to eval pt.
--- NOTE | 2021-08-01 02:25 | NUR ---
EDMD Dr. Carey at pt bedside for I&D of bilat thigh abscesses. Dr. Carey currently I&Ding rt thigh.
[2021-08-01] MEDS ORDERED: CEFTRIAXONE 1 G VIAL IM ONE (02:30)
[2021-08-01] MEDS ORDERED: SODIUM BICARBONATE 4.2 % (NEUT) 5 ML VIAL TP ONE (02:30)
[2021-08-01] MEDS ORDERED: SULFAMETH/TRIMETH 800/160 MG TABLET PO ONE (02:30)
[2021-08-01] MEDS ORDERED: LIDOCAINE 1%-EPI 1:100,000 20 ML VIAL IJ ONE (02:30)
[2021-08-01] MEDS ORDERED: CEFTRIAXONE 1 G VIAL ONE (02:35)
[2021-08-01] MEDS ORDERED: SULFAMETH/TRIMETH 800/160 MG TABLET ONE (02:37)
--- NOTE | 2021-08-01 02:46 | NUR ---
Dr. Carey has now moved on to the abcess on Lt thigh. Rt thigh cleansed and dressed with 2x2s and large tegaderm. Pt tolerated well.
--- NOTE | 2021-08-01 02:53 | NUR ---
Dr. Carey finished with procedure. I&D site on Lt thigh cleansed and dressed with 2x2 and boarder gauze. 4 extra 4x4 boarder gauze given to pt per EDMD. Pt dressed and waiting on DC instructions. Pt has good color, temp, and appearance. VSS, PE WNL, lungs clear, RRR, normal s1s2 without ectopy. Complaining of mild pain and discomfort at I&D site. No s/sx of distess present.
[2021-08-01] MEDS ORDERED: CEPH500T PO (02:55)
[2021-08-01] MEDS ORDERED: SULF1TAB48 PO (02:55)
[2021-08-01] MEDS ORDERED: TRAM50TA2 PO (02:55)
[2021-08-01] MEDS ORDERED: TRAMADOL HCL 50 MG TABLET PO ONE (03:15)
--- NOTE | 2021-08-01 03:15 | NUR ---
Pt given discharge and medication instructions and confirmed proper understanding of aftercare instructions. Pt given prescribtions and told about meds. Pt VSS, PE WNL, pt has good color, temp and appearance, gait steady. Pt signed DC instructions and walked out of ED without difficulty. No s/sx of distress present
[2021-08-01] MEDS ORDERED: TRAMADOL HCL 50 MG TABLET ONE (03:20)
[2021-08-01 03:26] VITALS: BP 128/83
== END 2021-08-01 03:15 | disposition home or self-care (01) ==
LOC: ER 01:54
DX: L02.416 Cutaneous abscess of left lower limb (principal); L02.415 Cutaneous abscess of right lower limb; L03.116 Cellulitis of left lower limb; L03.115 Cellulitis of right lower limb; S71.132S Puncture wound without foreign body, left thigh, sequela; S71.131S Puncture wound without foreign body, right thigh, sequela; X78.8XXS Intentional self-harm by other sharp object, sequela; F17.290 Nicotine dependence, other tobacco product, uncomplicated; K50.90 Crohn's disease, unspecified, without complications; F15.11 Other stimulant abuse, in remission; F11.11 Opioid abuse, in remission
CPT/HCPCS: 10061; 76882 ×2; 96372; 99284; J0696; J3490; A4663

== ENCOUNTER 2021-08-03 19:35 | Emergency (ER) | payer SELFPAY ==
[~2021-08-03 19:35] MED LIST changes: +CEPH500T PO; +TRAM50TA2 PO
--- NOTE | 2021-08-03 20:31 | NUR ---
Patient left without being traiged or seen by ERMD.
== END 2021-08-03 20:42 | disposition left against medical advice (07) ==
LOC: ER 19:38
DX: Z53.21 Procedure and treatment not carried out due to patient leaving prior to being seen by health care provider (principal)

== ENCOUNTER 2021-08-04 17:23 | Emergency (ER) | payer BC ==
[~2021-08-04] VITALS: Ht 175.3 cm; Wt 83.9 kg
--- NOTE | 2021-08-04 17:45 | NUR ---
at bedside for assessment
--- NOTE | 2021-08-04 18:00 | NUR ---
Patient refused IV, blood draw and CT
[2021-08-04] MEDS ORDERED: IOHEXOL 300MG/ML 100 ML INFUS..BTL ONE (18:11)
[2021-08-04] MEDS ORDERED: IV NORMAL SALINE 250 ML IV ONE (18:11)
[2021-08-04] MEDS ORDERED: SWABABLE VALVE TRANSFER SET EA MC ONE (18:11)
[2021-08-04] MEDS ORDERED: LORAZEPAM 1 MG TABLET ONE (18:12)
[2021-08-04] MEDS ORDERED: LORAZEPAM 0.5 MG TABLET PO ONE (18:15)
[2021-08-04] MEDS ORDERED: KETAMINE HCL 500 MG/10 ML INJ IM ONE (18:15)
[2021-08-04] MEDS ORDERED: LIDOCAINE HCL 1% 20 ML VIAL IJ ONE (18:15)
[2021-08-04] MEDS ORDERED: KETAMINE HCL 500 MG/10 ML INJ ONE (18:23)
--- NOTE | 2021-08-04 18:40 | NUR ---
Bilateral thigh abscess noted packed by previous MD, abscesses repacked and dressed at this time
--- NOTE | 2021-08-04 19:10 | NUR ---
RECEIVED REPORT FROM MAYTE LOPEZ. PT NOTED TO BE IN BED, VITALS STABLE.
--- NOTE | 2021-08-04 21:00 | NUR ---
Pt was noted with increased HR and Dr. Kelly offered medications, pt strongly refused. Offered relaxation techniques, quiet environment, decreased stimuli. Pt was noncompliant with care.
--- NOTE | 2021-08-04 21:10 | NUR ---
Patient discharged to home in stable condition. No changes in LOC. Written and verbal after care instructions given. Patient verbalizes understanding of instructions. Stressed follow up or return to ER for worsening s/s. Denies any pain/discomfort upon discharge. Steady gait, accompanied by father.
[2021-08-04 21:20] VITALS: BP 135/87
== END 2021-08-04 21:15 | disposition home or self-care (01) ==
LOC: ER 17:23
DX: L02.416 Cutaneous abscess of left lower limb (principal); L02.415 Cutaneous abscess of right lower limb; K50.90 Crohn's disease, unspecified, without complications; F17.200 Nicotine dependence, unspecified, uncomplicated; F15.11 Other stimulant abuse, in remission; F11.11 Opioid abuse, in remission; L90.5 Scar conditions and fibrosis of skin
CPT/HCPCS: 10061; 96372; 99284; J3490 ×2; A4663; J7050; Q9967